=== PATIENT | female | born 1940 | race Caucasian/White ===

== ENCOUNTER 2020-12-09 16:37 | Emergency (ER) | payer MEDICARE, SELFPAY ==
[2020-12-09 16:51] VITALS: BP 189/106; PULSE 71; RESP 18; TEMP 36.9; O2SAT 100
--- NOTE | 2020-12-09 17:07 | ED.SKABFB ---
HPI - Skin/Abscess/Foreign Bdy General Chief complaint: Skin/Abscess/Foreign Body Stated complaint: Rash from Coid shot Time Seen by Provider: 12/09/20 17:07 Source: patient Mode of arrival: ambulatory Limitations: no limitations History of Present Illness HPI narrative: Martina Black is a 80 female with a PMH of HTN who comes to express care after receiving her first vaccine for Covid and has a rash that started 2 days after the vaccination on the fourth and has increased in size and induration. She has a bruise in the center of the vaccine reaction. The total area is 8 by 8 Patient picked baby aspirin 3 times a week preventatively Patient vaccinated on December 01 after having L cataract surgery on November 29 and the right eye cataract surgery on December 05 Related Data Home Medications Medication Instructions Recorded Confirmed A To Z Multivitamin 12/09/20 Aspir-81 12/09/20 Calcium + D 12/09/20 co [id number] oil-omega 3-E 12/09/20 estradiol [Estrace] VAGINAL 12/09/20 lisinopril 12/09/20 Allergies Allergy/AdvReac Type Severity Reaction Status Date / Time Cephalosporins Allergy Mild RASH Unverified 09/28/17 08:55 Review of Systems Review of Systems: Narrative: CONSTITUTIONAL: Denies fever, chills, sweats. EYES: Denies visual changes, redness, discharge. ENT: Denies rhinorrhea, congestion, sore throat, otalgia. CARDIOVASCULAR: Denies chest pain, palpitations, edema. RESPIRATORY: Denies dyspnea, wheezing, cough GASTROINTESTINAL: Denies abdominal pain, nausea, vomiting, diarrhea. GENITOURINARY: Denies dysuria, hematuria, abnormal discharge SKIN: Denies rash ; patient has large indurated area on left upper arm with central bruising NEUROLOGIC: Denies numbness, or focal weakness. PSYCHIATRIC: Denies anxiety or depression. [facility] Past Medical History Medical History HTN (hypertension) Family History Family History Other Hypertension Social History Social History (Updated 12/09/20 @ 17:22 by Talia Hong CNP) Smoking status: Never smoker Alcohol intake: current Comments At time of signature, I agree with nursing past medical, surgical, social and family history. There is no relevant family history pertinent to the presenting complaint. Blood pressure is elevated, patient has diagnosis of hypertension, is aware that her blood pressure has been running high recently Exam Narrative: Exam Narrative: GENERAL: This is a well-nourished, well-developed patient, in mild distress. HEAD: normocephalic, atraumatic. EYES: Sclera clear/white. Vision is grossly intact. EARS: External ears normal, . Hearing grossly intact. NOSE: External nose normal without nasal discharge, nares without redness, no rhinorrhea. THROAT: Mucous membranes moist, NECK: Neck supple, non-tender CARDIOVASCULAR: Regular rate and rhythm without murmurs, gallops, or rubs. RESPIRATORY: Clear to auscultation. Breath sounds equal bilaterally. No wheezes, rales, or rhonchi. GASTROINTESTINAL: Abdomen soft, SKIN: warm, intact with no suspicious lesions or rash, good texture and turgor. 8 x 8 indurated area with redness side central bruising to left upper arm NEURO: awake, alert, and oriented to person, place and time. There were no obvious focal neurologic abnormalities. Steady gait EXTREMITIES: Normal range of motion. BACK: Nontender without deformity Course Course Emergency Course: Patient came [facility] with induration and bruising from first Covid vaccine last week Given 25 mg of Benadryl now-directed to give Benadryl 25 mg twice daily for now Discussed delayed allergic reaction; to contact the [facility] is not as well as her original vaccination site discussed whether she will take the vaccine second dose on December 29 Vital Signs Vital signs: Vital Signs Temperature 98.4 F 12/09/20 16:51 Pulse Rate 71 02/
[2020-12-09] MEDS: diphenhydrAMINE HCl CAP 25 MG CAPSULE PO (17:14)
--- NOTE | 2020-12-09 17:26 | PC.NURSE ---
aware to contact [facility] vaccination site to report rx.
== END 2020-12-09 17:33 | disposition home or self-care (01) ==
PROVIDERS: Emergency Provider Nurse Practitioner; PCP Family Medicine
DX: L53.9 Erythematous condition, unspecified (principal); T88.1XXA Other complications following immunization, not elsewhere classified, initial encounter; I10 Essential (primary) hypertension; Z79.82 Long term (current) use of aspirin
CPT/HCPCS: 99213; A9270; G0463

== ENCOUNTER 2023-07-26 14:55 | Outpatient (RCR) | payer OTHER, SELFPAY | END 2023-07-26 23:59 | disposition home or self-care (01) | LOC: ANHAUDIO 14:55 | PROVIDERS: PCP Family Medicine; Visit Provider Internal Medicine | DX: Z46.1 Encounter for fitting and adjustment of hearing aid (principal) | CPT/HCPCS: 92593 ==

== ENCOUNTER 2023-11-11 08:56 | Outpatient (RCR) | payer MEDICARE, SELFPAY | END 2023-11-11 23:59 | disposition home or self-care (01) | LOC: ANHAUDIO 08:56 | PROVIDERS: PCP Family Medicine; Visit Provider Internal Medicine | DX: Z46.1 Encounter for fitting and adjustment of hearing aid (principal) | CPT/HCPCS: 92593 ==

== ENCOUNTER 2024-05-11 11:47 | Emergency (ER) | payer MEDICARE, SELFPAY ==
[2024-05-11 12:11] VITALS: BP 124/55; PULSE 66; RESP 20; TEMP 37.1; O2SAT 100
--- NOTE | 2024-05-11 12:24 | ED.URI ---
HPI - URI/Sore Throat General Chief Complaint: Upper Respiratory Infection Stated Complaint: Sinus Time Seen by Provider: 05/11/24 12:15 Source: patient Mode of arrival: ambulatory Limitations: no limitations History of Present Illness HPI Narrative: Martina is an 83-year-old female patient presenting to the clinic today with complaints of cough and runny nose x6 days. She reports that the symptoms are worse at night when drainage is going in the back of her throat. She denies any fever, chills, or body aches. MD elicited complaint: cough and nasal congestion Related Data Home Medications Medication Instructions Recorded Confirmed A To Z Multivitamin 12/09/20 Aspir-81 12/09/20 Calcium + D 12/09/20 co [id number] oil-omega 3-E 12/09/20 estradiol 0.01% (0.1 mg/gram) vaginal 12/09/20 vaginal cream (Estrace) lisinopril 40 mg tablet 12/09/20 Allergies Allergy/AdvReac Type Severity Reaction Status Date / Time Cephalosporins Allergy Mild RASH Verified 05/11/24 13:00 Review of Systems Review of Systems: Pertinent positives per HPI. Patient denies any fever, chills, rash, headache, visual changes, dizziness, shortness of breath, chest pain, palpitations, nausea, vomiting, diarrhea, constipation, abdominal pain, or any urinary issues. PMFSH Past Medical History Medical History HTN (hypertension) Family History Family History Other Hypertension Social History Social History (Updated 12/09/20 @ 17:22 by Talia Hong, ERENDIRA) Smoking status: Never smoker Alcohol intake: current Comments At the time of my signature, I reviewed and agree with the nursing past medical, surgical, social, and family history. There is no relevant family history pertinent to the patient complaint. Exam Narrative: General: Well-developed, well nourished, in no apparent distress Head: Normocephalic, atraumatic Eyes: Pupils equally round and reactive to light bilaterally, EOM intact, sclera and conjunctive clear, no discharge, lids normal Ears: TMs intact and clear, ear canals clear, no drainage, grossly hearing normal. Nose: Nares patent, clear discharge, moderate inflammation, no sinus tenderness. Mouth: Oral pharynx without lesions or masses, good dentition, MMM. Neck: Supple, trachea midline, no enlargement of anterior or posterior cervical nodes, no thyroid masses or goiter palpable. Cardio: Regular rate and rhythm, s1 and s2 normal, no murmur appreciated. Resp: Clear to auscultation bilaterally, no rhonchi, rales, wheezing or rubs Course Course Emergency Course: Portions of this record may have been created with voice recognition software. Level of Care: Express Care Visit Vital Signs Vital signs: Vital Signs Temperature 37.1 C 05/11/24 12:11 Pulse Rate 66 05/11/24 12:11 Respiratory Rate 20 05/11/24 12:11 Blood Pressure 124/55 L 05/11/24 12:11 Pulse Oximetry 100 05/11/24 12:11 Oxygen Delivery Room Air 05/11/24 12:11 Temperature 37.1 C 05/11/24 12:11 Pulse Rate 66 05/11/24 12:11 Respiratory Rate 20 05/11/24 12:11 Blood Pressure 124/55 L 05/11/24 12:11 Pulse Oximetry 100 05/11/24 12:11 Oxygen Delivery Room Air 05/11/24 12:11 Vital signs reviewed MDM - URI/Sore Throat MDM Narrative Medical decision making narrative: At the time of visit patient is resting comfortably on the exam table. Patient appears to be nontoxic. Supportive measures were discussed with the patient and they voiced understanding discharge instructions and agrees to treatment plan. Return precautions reviewed Differential Diagnosis Differential diagnosis: Likely upper respiratory infection, otitis media, sinusitis, viral infection, bronchitis, influenza, pharyngitis and other ( COVID) Lab Data Labs: Lab Results 05/11/24 Range/Units Unknown POC S
== END 2024-05-11 12:44 | disposition home or self-care (01) ==
PROVIDERS: Emergency Provider Nurse Practitioner Family; PCP Family Medicine
DX: J06.9 Acute upper respiratory infection, unspecified (principal); Z20.822 Contact with and (suspected) exposure to COVID-19; I10 Essential (primary) hypertension
CPT/HCPCS: 87426; 99213; G0463

== ENCOUNTER 2024-05-21 12:00 | Outpatient (RCR) | payer SELFPAY | END 2024-05-21 23:59 | disposition home or self-care (01) | LOC: ANHAUDIO 12:00 | PROVIDERS: PCP Family Medicine | DX: Z46.1 Encounter for fitting and adjustment of hearing aid (principal) | CPT/HCPCS: 92593; 99199 ==

== ENCOUNTER 2025-05-06 12:25 | Outpatient (CLI) | payer MEDICARE, SELFPAY ==
--- NOTE | ~2025-05-06 | MR_ITS ---
MRI of the lumbar spine Clinical History: Anterolisthesis Technique: Axial T2-weighted images, and sagittal T1-weighted, T2-weighted, and T2 fat-sat images wer e acquired. Findings: No acute fracture identified. There is a 5 mm anterolisthesis of L4 over L5. There is 4 mm retrolisthesis of L1 over L2. No suspicious bone marrow signal reality seen. There is multilevel mode rate signal changes throughout the lumbar spine. At L1-L2, there is severe degenerative disc narrowing. There is mild disc bulge with moderate facet a rthropathy. No central canal stenosis. There is severe bilateral neural foraminal narrowing. At L2-L3, there is severe degenerative disc narrowing. There is disc bulge with small central disc ex trusion and severe facet arthropathy. There is mild to moderate central canal stenosis. There is adva nced bilateral neural foraminal narrowing. At L3-L4, there is severe degenerative disc narrowing. There is severe facet arthropathy. No central canal stenosis. There is mild right neural foraminal narrowing. Left neural foramen preserved. At L4-L5, there is severe degenerative disc narrowing. There is disc bulge/uncovering with probable d isc protrusion and severe facet arthropathy. There is moderate to severe spinal canal stenosis/thecal sac compression. There is severe right neural foraminal compress, and moderate left neural foraminal comprise. At L5-S1, there is severe degenerative distended. There is mild disc bulge with severe facet arthropa thy. No central canal stenosis. There is severe bilateral neural foraminal narrowing, left worse than right. Paravertebral soft tissues are unremarkable. Impression: Severe degenerative spondylosis throughout the lumbar spine, as detailed above. 5 mm anterolisthesis of L4 over L5. 4 mm retrolisthesis of L1 over L2. Reviewed, dictated and finalized at [facility]. Impression: Severe degenerative spondylosis throughout the lumbar spine, as detailed above. 5 mm anterolisthesis of L4 over L5. 4 mm retrolisthesis of L1 over L2.
== END 2025-05-06 12:26 | disposition home or self-care (01) ==
PROVIDERS: PCP Nurse Practitioner Family; Visit Provider Nurse Practitioner Family
DX: M47.816 Spondylosis without myelopathy or radiculopathy, lumbar region (principal); M43.16 Spondylolisthesis, lumbar region
CPT/HCPCS: 72148